=== PATIENT | female | born 1965 | race Caucasian/White ===

== ENCOUNTER 2021-03-16 04:27 | Day surgery (SDC) | payer OTHER ==
[2021-03-11 15:44] VITALS: BMI 27.9
[2021-03-16 06:47] LABS: HEMATOCRIT 32.3 % (32.4-45.2); HEMOGLOBIN 10.6 GM/dL (10.7-15.3); MCH 24.9 pg (25.7-33.7); MCHC 32.7 g/dl (32.0-36.0); MEAN PLT VOLUME 7.7 fl (7.5-11.1); PLATELET COUNT 406 10^3/uL (134-434); RBC 4.25 M/mm3 (3.60-5.2); RDW 27.8 % (11.6-15.6); WHITE BLOOD COUNT 6.3 K/mm3 (4.0-10.0)
[2021-03-16] MEDS ORDERED: DEXAMETHASONE SOD PHOSPHATE 4 MG/1 ML VIAL ONE (07:31)
[2021-03-16] MEDS ORDERED: LIDOCAINE HCL/PF 2% SDV 5ML VIAL ONE (07:31)
[2021-03-16] MEDS ORDERED: ROCURONIUM BROMIDE 50 MG/5 ML SYRINGE ONE (07:32)
[2021-03-16] MEDS ORDERED: PROPOFOL 20 ML ONE (07:32)
[2021-03-16] MEDS ORDERED: MIDAZOLAM HCL 2 MG/2 ML SINGLE DOSE VIAL ONE (08:05)
[2021-03-16] MEDS ORDERED: INDOCYANINE GREEN 25 MG/10 ML VIAL IVPUSH ONE (08:09)
[2021-03-16] MEDS ORDERED: BUPIVACAINE HCL/PF 0.5% (5MG/ML) 10 ML VIAL ONE (08:09)
[2021-03-16] MEDS ORDERED: LIDOCAINE 1%/EPI 1:100000 (20 ML MULTI DOSE VIAL) ONE (08:09)
[2021-03-16] MEDS ORDERED: ceFAZolin SODIUM 1 GM VIAL ONE (08:49)
[2021-03-16] MEDS ORDERED: ceFAZolin SODIUM 1 GM VIAL IVPB ONE (08:50)
[2021-03-16] MEDS ORDERED: BUPIVACAINE HCL/PF 0.5% (5 MG/ML) 30 ML VIAL IJ ONE (09:08)
[2021-03-16] MEDS ORDERED: NEOSTIGMINE METHYLSULFATE 0.5 MG/ML - 10 ML MDV ONE (09:55)
[2021-03-16] MEDS ORDERED: GLYCOPYRROLATE 0.2 MG/1 ML VIAL ONE (09:55)
[2021-03-16] MEDS ORDERED: KETOROLAC TROMETHAMINE 30 MG/1 ML VIAL ONE (09:59)
[2021-03-16] MEDS ORDERED: ONDANSETRON 4 MG/2 ML VIAL IVPUSH PRN (10:13)
[2021-03-16] MEDS ORDERED: SIMETHICONE 80 MG TAB.CHEW (FP) PO PRN (10:40)
[2021-03-16] MEDS ORDERED: ONDANSETRON 4 MG/2 ML VIAL ONE (10:53)
[2021-03-16] MEDS ORDERED: HYDROmorphone *PCA* 10MG/50ML DISP.SYRIN ONE (11:07)
[2021-03-16] MEDS: HYDROmorphone *PCA* 10MG/50ML DISP.SYRIN PCA SCH (11:25)
[2021-03-16] MEDS ORDERED: PROMETHAZINE HCL 25 MG/1 ML VIAL ONE (11:41)
[2021-03-16] MEDS: LACTATED RINGERS SOLUTION 1,000 ML IV SCH ×2 (11:45→21:43)
[2021-03-16] MEDS ORDERED: PROMETHAZINE HCL 25 MG/1 ML VIAL IVPB ONE (11:54)
[2021-03-16] MEDS: ACETAMINOPHEN 1000 MG/100 ML VIAL (NON FORMULARY) IVPB SCH ×3 (18:13→22:58)
[2021-03-16] MEDS: KETOROLAC TROMETHAMINE 15 MG/ML VIAL IVPUSH SCH (22:45)
[2021-03-17] MEDS: ACETAMINOPHEN 1000 MG/100 ML VIAL (NON FORMULARY) IVPB SCH (03:55)
[2021-03-17] MEDS: KETOROLAC TROMETHAMINE 15 MG/ML VIAL IVPUSH SCH ×3 (04:00→11:03)
[2021-03-17] MEDS: LACTATED RINGERS SOLUTION 1,000 ML IV SCH ×2 (06:41→11:09)
[2021-03-17] MEDS ORDERED: ENOXAPARIN NA (PORCINE) 40 MG/0.4 ML DISP.SYRIN SQ SCH (10:00)
[2021-03-17 11:39] LABS: HEMATOCRIT 31.6 % (32.4-45.2); HEMOGLOBIN 10.4 GM/dL (10.7-15.3); MCH 24.6 pg (25.7-33.7); MCHC 32.7 g/dl (32.0-36.0); MEAN CELL VOLUME 75.3 fl (80-96); MEAN PLT VOLUME 8.1 fl (7.5-11.1); PLATELET COUNT 368 10^3/uL (134-434); RDW 28.3 % (11.6-15.6); WHITE BLOOD COUNT 9.1 K/mm3 (4.0-10.0)
[2021-03-17 12:05] LABS: BLOOD UREA NITROGEN 8.7 mg/dL (7-18); CALCIUM 8.8 mg/dL (8.5-10.1)
[2021-03-17 12:08] LABS: CREATININE 1.1 mg/dL (0.55-1.3)
[2021-03-17] MEDS ORDERED: ACETAMINOPHEN 500 MG TABLET (FP) PO ONE (12:13)
[2021-03-17] MEDS: HYDROmorphone *PCA* 10MG/50ML DISP.SYRIN PCA SCH (12:33)
[2021-03-17] MEDS ORDERED: PCA PUMP NR ONE (12:43)
[2021-03-17 12:56] VITALS: BP 119/65
[2021-03-17 12:59] VITALS: PULSE 77; TEMP 100
== END 2021-03-17 14:10 | disposition home or self-care (01) ==
LOC: JASUSAT 04:27 → JASU-SURG 04:27 → J6S 14:22 → JASUSAT 03-17 14:10
PROVIDERS: ATTEND Obstetrics & Gynecology Gynecologic Oncology
PROC: 0UT7FZZ Resection of Bilateral Fallopian Tubes, Via Natural or Artificial Opening With Percutaneous Endoscopic Assistance (ICD-10-PCS; 2021-03-16)
PROC: 8E0W4CZ Robotic Assisted Procedure of Trunk Region, Percutaneous Endoscopic Approach (ICD-10-PCS; 2021-03-16)
PROC: 0UT9FZZ Resection of Uterus, Via Natural or Artificial Opening With Percutaneous Endoscopic Assistance (ICD-10-PCS; principal; 2021-03-16 08:00)
PROC: 0UT2FZZ Resection of Bilateral Ovaries, Via Natural or Artificial Opening With Percutaneous Endoscopic Assistance (ICD-10-PCS; 2021-03-16 08:00)
DX: N95.0 Postmenopausal bleeding (principal); D25.0 Submucous leiomyoma of uterus; N84.0 Polyp of corpus uteri; N88.8 Other specified noninflammatory disorders of cervix uteri; N83.8 Other noninflammatory disorders of ovary, fallopian tube and broad ligament
CPT/HCPCS: 58552; S2900; 36415; 80048; 84703; 85027; 86850; 86900; 86901; 86922; 88305-TC; 88307-TC; 94760; J0131